=== PATIENT | female | born 1985 | race Caucasian/White ===

== ENCOUNTER 2018-05-16 15:46 | Inpatient (IN) | payer OTHER ==
[~2018-05-16] VITALS: Ht 152.4 cm; Wt 62.3 kg
--- NOTE | ~2018-05-16 | EKG ---
[place], [place] ELECTROCARDIOGRAM REPORT NAME: COLEMAN LOYD UNIT #: [id number] ROOM: [facility] DOCTOR: JAZMINE DRAFT REPORT BIRTHDATE: [birth year] [facility] Test Date: 2018-05-16 Test Time: 20:21:44 Pat Name: COLEMAN LOYD Department: Room: [facility] Gender: F Systems Test Analyst: Noe Mckee : 1985 Requested By: STEFAN SIGNLETON Order Number: [id number] Reading MD: Naima Azar Measurements Intervals [place] Rate: 82 P: 17 MN: 114 QRS: 21 QRSD: 102 T: 13 QT: 373 QTc: 436 Interpretive Statements Sinus rhythm Borderline short MN interval RSR' in V1 or V2, right VCD or RVH Electronically Signed On 05-18-2018 11:04:18 PDT by Naima Azar CM:EKGRPT:ELECTROCARDIOGRAM REPORT 20 1104 STEFAN NEGRETE DRAFT REPORT STEFAN SINGLETON DO
--- NOTE | 2018-05-16 16:54 | NUR ---
PATIENT MEETS [facility]. CINA=15. PATIENT WANTS TO FOLLOW UP WITH [facility] IN [place] FOR HER AFTERCARE PLAN. PATIENT WANTS THE VIVITROL SHOT. [place] STAFF WILL FOLLOW UP WITH PATIENT CONCERNING HER AFTERCARE PLAN. JM LINCOLN B.A. GEOMAGNETICIAN
[2018-05-16 17:00] VITALS: BP 127/75
--- NOTE | 2018-05-16 17:00 | NUR ---
32 year old FEMALE admitted to room # 501 for stabilization. 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 Compliant with admission procedure. Patient denies any anxiety, but is unable to sit still, taps toes to floor continuously, looks about room, unable to focus eyes on nurse during interview. See assessment forms for additional information about patient status.
[2018-05-16 17:31] LABS: BASO # 0.1 10*3/uL (0.0-0.1); BASO % 0.6 % (0.0-1.0); EOS # 0.1 10*3/uL (0.0-0.4); EOS % 1.2 % (1.0-4.0); HEMATOCRIT 41.8 % (37.0-47.0); HEMOGLOBIN 13.8 g/dl (12.0-16.0); LYMPH # 3.1 10*3/uL (1.3-4.4); LYMPH % 35.8 % (27.0-41.0); MEAN CELL VOLUME 88.9 fl (81.0-99.0); MEAN CORPUSCULAR HGB 29.4 pg (27.0-31.0); MEAN PLATELET VOLUME 9.4 fl (9.6-12.3); MONO # 0.5 10*3/uL (0.1-1.0); MONO % 6.1 % (3.0-9.0); NEUT # 4.8 10*3/uL (2.3-7.9); NEUT % 56.1 % (47.0-73.0); PLATELET COUNT AUTOMATED 332 10*3/uL (130-400); RED CELL DISTRI WIDTH 12.8 % (0-14.5); WHITE BLOOD COUNT 8.6 10*3/uL (4.8-10.8)
[2018-05-16 17:59] LABS: ALBUMIN 3.8 gm/dl (3.1-4.5); ALKALINE PHOSPHATASE 106 U/L (45-117); BUN 12 mg/dl (7-24); CHLORIDE 105 mmol/L (98-107); CREATININE 0.77 mg/dL (0.55-1.02); POTASSIUM 4.2 mmol/L (3.5-5.1); SGOT/AST 31 IU/L (3-35); SGPT/ALT 59 U/L (12-78); SODIUM 139 mmol/L (136-145); TOTAL PROTEIN 8.2 gm/dL (6.4-8.2)
[2018-05-16 18:00] LABS: BILIRUBIN NEGATIVE (NEGATIVE); BLOOD NEGATIVE (NEGATIVE); CLARITY CLOUDY (CLEAR); COLOR YELLOW (YELLOW); GLUCOSE NEGATIVE (NEGATIVE); KETONE NEGATIVE (NEGATIVE); LEUKO ESTERASE NEGATIVE (NEGATIVE); NITRITE NEGATIVE (NEGATIVE); UROBILINOGEN 0.2 E.U./dl (0.2-1.0)
[2018-05-16 18:09] LABS: BETA-HCG, QUANT < 1.0 mIU/mL (1-3); ETHYL ALCOHOL < 3.0 mg/dl (<3)
[2018-05-16 18:14] LABS: BACTERIA 1+
[2018-05-16 18:18] LABS: URINE AMPHETAMINES < 1000 (1000ng/ml); URINE BARBITURATES < 200 (200ng/ml); URINE BENZODIAZEPINES < 200 (200ng/ml); URINE CANNABINOIDS (THC) < 50 (50ng/ml); URINE COCAINE > 300 (300ng/ml); URINE METHADONE < 300 (300ng/ml); URINE OPIATES > 300 (300ng/ml)
[2018-05-16 18:23] LABS: URINE PHENCYCLIDINE < 25 (25ng/ml)
[2018-05-16 20:00] VITALS: BP 122/76
--- NOTE | 2018-05-16 22:16 | NUR ---
PT. REQUESTING SOMETHING FOR HER RESTLESSNESS OF HER LEGS AND ANXIETY, ALSO WANTED NICOTROL INHALER. REQUIP AND VISTARIL GIVEN PER ORDER FOR WITHDRAWL SYMPTOMS ALSO INHALER TAKEN. SUBUTEX PILLS FROM EARLIER WERE NOT TAKEN PT. REFUSED THEM PILLS STILL IN CUP LOCKED UP IN [facility] FROM [facility]IGHT RN. PT. STILL REFUSING TO TAKE. TOLD PATIENT HER NEXT DOSE IS DUE AT 2AM AND PT. DOESN'T WANT TO TAKE THIS EVEN THEN STATED "IF I'M SLEEPING DON'T WAKE ME" PT. WANTED TO HAVE A LIBRIUM TAPER BECAUSE WHEN PT. DISCHARGE IS GOING TO HAVE THE VIVITROL SHOT AND FEELS THIS IS GOING TO MAKE HER EVEN MORE SICK. 2 SUBUTEX PILLS WERE WASTED BY THIS RN AND CAMILLA CHEN RN.
--- NOTE | 2018-05-16 22:36 | NUR ---
NOTIFIED DR. ABREU OF PT. REFUSING SUBUTEX.
[2018-05-17] VITALS: BP 109/65
--- NOTE | 2018-05-17 01:11 | NUR ---
24 HR chart check completed.
--- NOTE | 2018-05-17 02:42 | NUR ---
PT. SLEEPING DID NOT AWAKE PER HER REQUEST TO REFUSE SUBUTEX IF SLEEPING.
--- NOTE | 2018-05-17 04:00 | NUR ---
SLEEPING.NO ACUTE DISTRESS NOTED.
[2018-05-17 05:00] VITALS: BP 110/68
[2018-05-17 08:00] VITALS: BP 105/65
--- NOTE | 2018-05-17 13:27 | NUR ---
Pt states she is anxious requesting subutex. Notified that had dc due to her refusing. She asked if could be called and resume. States she just started feeling poorly. Medicated with vistaril, motrin, robaxin and zofran.
--- NOTE | 2018-05-17 14:00 | NUR ---
Spoke with Dr. Bolton regarding pt request for subutex to be resumed. States she will reorder it.
--- NOTE | 2018-05-17 15:10 | NUR ---
Took subutex to room and pt is not in room. No belongings belonging to pt in room either. Staff searched for pt and could not be found.
--- NOTE | 2018-05-17 15:15 | NUR ---
Notified Dr. Bolton that pt cannot be found and that belongings from room are gone.
== END 2018-05-17 15:15 | disposition left against medical advice (07) | DRG 894 ==
LOC: 5E 15:46
PROVIDERS: ADMIT Internal Medicine
DX: F11.23 Opioid dependence with withdrawal (principal); F17.210 Nicotine dependence, cigarettes, uncomplicated; G25.81 Restless legs syndrome; F41.9 Anxiety disorder, unspecified; R82.71 Bacteriuria; F14.10 Cocaine abuse, uncomplicated; Z53.21 Procedure and treatment not carried out due to patient leaving prior to being seen by health care provider; Z86.73 Personal history of transient ischemic attack (TIA), and cerebral infarction without residual deficits; Z88.8 Allergy status to other drugs, medicaments and biological substances; Z71.6 Tobacco abuse counseling